=== PATIENT | female | born 1980 | race Caucasian/White ===

== ENCOUNTER 2021-12-20 19:12 | Emergency (ER) | payer MEDICAID ==
[~2021-12-20] VITALS: Ht 152.4 cm; Wt 68.0 kg
[2021-12-20 19:21] VITALS: BP 148/87
[2021-12-20] MEDS ORDERED: ACETAMINOPHEN 500MG TABLET PO ONE (20:30)
[2021-12-20] MEDS ORDERED: IBUP-2029 MT (21:41)
== END 2021-12-20 22:17 | disposition home or self-care (01) ==
LOC: ER 19:12
DX: M25.571 Pain in right ankle and joints of right foot (principal); Z98.890 Other specified postprocedural states
CPT/HCPCS: 73610; 99283; Z7610